=== PATIENT | male | born 1990 | race Caucasian/White ===

== ENCOUNTER 2018-08-07 13:21 | Emergency (ER) | payer MEDICAID ==
[~2018-08-07] VITALS: Ht 162.6 cm; Wt 81.8 kg
[~2018-08-07 13:21] MED LIST: NOCURR
[2018-08-07] MEDS ORDERED: IBUPROFEN 600 MG TABLET PO ONE (13:45)
[2018-08-07] MEDS ORDERED: LIDOCAINE 5% TRANSDERMAL PATCH TD ONE (13:45)
[2018-08-07 14:52] VITALS: BP 132/85
== END 2018-08-07 15:36 | disposition home or self-care (01) ==
LOC: EMS 13:21
DX: S20.211A Contusion of right front wall of thorax, initial encounter (principal); F17.210 Nicotine dependence, cigarettes, uncomplicated; W19.XXXA Unspecified fall, initial encounter; Y93.89 Activity, other specified; Y92.89 Other specified places as the place of occurrence of the external cause; Y99.8 Other external cause status
CPT/HCPCS: 71101; 99406

== ENCOUNTER 2025-04-20 12:59 | Emergency (ER) | payer MEDICAID ==
[~2025-04-20] VITALS: Ht 172.7 cm; Wt 72.7 kg
[2025-04-20 13:20] VITALS: BP 134/80; PULSE 76; RESP 18; TEMP 98.5; O2SAT 99
[2025-04-20 14:18] LABS: PLATELET COUNT (AUTO) 456 K/uL (150-450); RED BLOOD CELL COUNT(AUTO) 5.14 MIL/uL (4.50-5.90); RED CELL DISTRIBUTION WIDTH 14.2 % (11.5-14.5); WHITE BLOOD COUNT (AUTO) 10.7 K/uL (4.5-11.0)
[2025-04-20] MEDS: CEPHALEXIN MONOHYDRATE 500 MG CAPSULE PO ONE (15:21)
[2025-04-20] MEDS: COLCHICINE 0.6 MG TABLET PO ONE (15:21)
[2025-04-20] MEDS: SULFAMETHOX/TRIMETH DS 800-160 MG/TABLET PO ONE (15:21)
[2025-04-20] MEDS ORDERED: CEPH-558 PO (15:44)
[2025-04-20] MEDS ORDERED: INDO50CA97 PO (15:44)
[2025-04-20] MEDS ORDERED: SULF-261 PO (15:44)
[2025-04-20] MEDS: INDOMETHACIN 50 MG CAPSULE PO ONE (16:03)
== END 2025-04-20 16:05 | disposition home or self-care (01) ==
LOC: EMS 13:04
DX: M10.071 Idiopathic gout, right ankle and foot (principal); M19.071 Primary osteoarthritis, right ankle and foot; F17.210 Nicotine dependence, cigarettes, uncomplicated; F14.90 Cocaine use, unspecified, uncomplicated; F15.90 Other stimulant use, unspecified, uncomplicated; F12.90 Cannabis use, unspecified, uncomplicated; F10.90 Alcohol use, unspecified, uncomplicated; Y90.9 Presence of alcohol in blood, level not specified
CPT/HCPCS: 84550; 85025; 99284